=== PATIENT | male | born 1995 | race Caucasian/White ===

== ENCOUNTER → 2016-07-03 | Outpatient (CLI) | payer MEDICAID ==
[~2016-07-03] MED LIST: AMOXICILLIN &500 MG PO; CIPRO 500MG TA500 MG PO; DICLOFENAC 50MG50 MG PO; FLEXERIL10 MG PO; NAPROSYN 500MG500 MG PO; NOMEDS; PREDNISONE 20MG20 MG PO; TAMIFLU 75MG CA75 MG PO
--- NOTE | 2016-07-03 16:24 | RADIOLOGY REPORT PS360 ---
EXAM: LUMBAR SPINE 5 VIEWS HISTORY: LUMBAGO WITH LT SCIATICA COMPARISON: None FINDINGS: Normal alignment. No fracture or dislocation. No lytic or blastic change. No significant degenerative change. The disc spaces are preserved. IMPRESSION: Negative lumbar spine
--- NOTE | 2016-07-03 16:24 | RADIOLOGY REPORT PS360 ---
HIP LT 2-3V W/PELVIS IF PERFOR HISTORY: LT HIP PAIN COMPARISON: None FINDINGS: No fracture or dislocation is evident. No significant degenerative change. No lytic or blastic change. Unremarkable soft tissues IMPRESSION: Negative hip
== END ==
LOC: RAD 12:31
DX: M25.552 Pain in left hip (principal); M54.42 Lumbago with sciatica, left side